=== PATIENT | female | born 1960 | race Caucasian/White ===

== ENCOUNTER 2020-08-04 10:56 | Emergency (ER) | payer BC, SELFPAY ==
[2020-08-04 11:13] VITALS: BP 177/95; PULSE 95; RESP 24; TEMP 37; O2SAT 99; BMI 34.6
--- NOTE | 2020-08-04 11:14 | CT_ITS ---
WS: [id number] CT ABDOMEN PELVIS TECHNIQUE: Noncontrast CT of the abdomen and pelvis with coronal and sagittal reformatted images. CLINICAL INFORMATION: flank pain COMPARISON: None. DLP: 1037.[address] scans at [facility] use at least one of these dose optimization techniques: automat ed exposure control; mA and/or kV adjustment per patient size (includes targeted exams where dose is matched to clinical indication); or iterative reconstruction. FINDINGS: Normal noncontrast liver. Cholecystectomy clips. Noncontrast spleen is normal. Normal GE junction. Bibi ng bases are well aerated. Adrenal glands are normal. No hydronephrosis in either kidney. No obstruct ing renal or ureteral calculi. Normal caliber abdominal aorta. No abdominal or pelvic lymphadenopathy . Normal sigmoid colon. No evidence of high-grade small or large bowel obstruction. No free fluid in th e abdomen or pelvis. Mild thoracolumbar curve. Urine distended bladder. CT/CT kidney stone [id number] IMPRESSION: 1. No acute abdominal or pelvic findings. 2. No evidence of small or large bowel obstruction. 3. Cholecystectomy clips. 4. No obstructing renal or ureteral calculi. No hydronephrosis. Notified Nas Rankin DO at 08/04/2020 12:38 PM.
--- NOTE | 2020-08-04 11:14 | ECG_ITS ---
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 Measurements Intervals [place] Rate: 83 P: 22 DE: 134 QRS: -15 QRSD: 81 T: 40 QT: 342 QTc: 403 Interpretive Statements SINUS RHYTHM WITH SINUS ARRHYTHMIA MINIMAL VOLTAGE CRITERIA FOR LVH, CONSIDER NORMAL VARIANT [MEETS CRITERIA IN ONE OF: R(aVL), S(V1), R(V5), R(V5/V6)+S(V1)] No previous ECG available for comparison Electronically Signed On 08-04-2020 17:37:23 GUITAR TEACHER by Norris Gonzalez M.D. [id number]
--- NOTE | 2020-08-04 11:14 | XR_ITS ---
WS: [id number] Exam: XR chest 1V portable [id number] Date/Time of Exam: 08/04/2020 11:18 AM Reason For Exam: dyspnea/cough Findings: The lungs are clear and fully expanded. Costophrenic angles are sharp. No infiltrates. Bronchovascula r relief appears normal. Cardiac silhouette is unremarkable. Bony elements are intact. XR/XR chest 1V portable [id number] IMPRESSION: Unremarkable chest radiograph.
[2020-08-04 11:23] LABS: Glucose Point of Care 214 mg/dL (70-110)
--- NOTE | 2020-08-04 11:47 | ED_ITS ---
HPI - Female Genitourinary General: Chief complaint: Urogenital-Female Stated complaint: SHARP BACK/SIDE PAINS, BLOOD IN URINE Time Seen by Provider: 08/04/20 11:01 History of Present Illness: HPI Narrative: 59-year-old female presents emergency room complaining of left flank and back pain radiating down around to the left lower quadrant. Started at 2 AM today she is also noted some hematuria. Denies any fever sweats chills no cough shortness of breath. Pertinent past history: recurrent UTIs Quality of pain: cramping Consistency: constant Urinary symptoms: Dysuria and Flank Pain Exacerbating factors: none Relieving factors: none Associated symptoms: Deny abdominal pain, short of breath, fevers/chills, headache(s), nausea, rash, seizures, syncope, vaginal discharge or weakness Treatment prior to arrival: none Review of Systems Const: Denies: fever(s), chills, body aches, change in appetite, fatigue or malaise ENMT: Denies: throat pain, ear or mastoid pain, nasal discharge or nasal congestion Card: Denies: syncope Resp: Denies: dyspnea, productive cough or non-productive cough GI: Denies: abdominal pain or nausea : Denies: vaginal discharge Skin/Breast: Denies: rash or pruritus Neuro: Denies: headache(s) Physical Exam Const: COMMON NORMALS: no acute distress GENERAL APPEARANCE: cooperative and comfortable ORIENTATION/CONSCIOUSNESS: Yes awake, Yes oriented to person, Yes oriented to place and Yes oriented to time HENMT: COMMON NORMALS: normocephalic, atraumatic and hearing grossly normal bilaterally HEAD & SCALP: normocephalic and atraumatic Neck/C-Spine: COMMON NORMALS: no JVD Resp: COMMON NORMALS: normal respiratory effort, No retractions, No use of accessory muscles and clear to auscultation bilaterally AUSCULTATION: clear to auscultation bilaterally Cardio: COMMON NORMALS: no JVD, regular rate, regular rhythm and No murmurs present (Cardio) RATE: regular rate RHYTHM: regular rhythm GI: COMMON NORMALS: Soft to palpation and No hepatosplenomegaly present AUSCULTATION: Yes normoactive bowel sounds PALPATION: Yes Soft to palpation, Yes Tenderness to palpation present (GI) Details: LLQ, No Guarding due to palpation present (GI) and Yes No hepatosplenomegaly present Extremity: COMMON NORMALS: normal to inspection, capillary refill normal, no clubbing, cyanosis or edema, no calf tenderness and no pedal edema Neuro: SENSORIUM/ORIENTATION: Yes oriented to person, Yes oriented to place and Yes oriented to time Skin: COMMON NORMALS: no rashes or lesions noted GENERAL SKIN EXAM: no rashes or lesions noted Course Vital Signs: Vital signs: Vital Signs Temperature 98.6 F 08/04/20 11:13 Pulse Rate 81 08/04/20 14:45 Respiratory Rate 18 08/04/20 14:45 Blood Pressure 164/97 08/04/20 14:45 Pulse Oximetry 97 08/04/20 14:45 MDM - Female MDM Narrative: Medical decision making narrative: Does have a significant mild blood in her urine with some dysuria will treat her for cystitis cultures pending. I think her back pain is more related to musculoskeletal to reproduce with palpation and with movement. We will give her pain medications if has worsening or change symptoms return if urine culture is negative will need further evaluation. Lab Data: Labs: Lab Results 08/04/20 08/04/20 08/04/20 Range/Units 11:19 11:50 12:00 WBC 12.2 H (4.0-10.0) 10^3/ uL RBC 4.79 (4.1-5.3) 10^6/u L Hgb 14.5 (11.5-15.3) g/dL Hct 44.2 (37.0-47.0) % MCV 92.3 (81-99) fL MCH 30.3 (28.0-34.0) pg MCHC 32.8 (30.0-36.0) g/dL RDW 12.8 (12.1-15.1) % Plt Count 320 (130-400) 10^3/c mm MPV 9.8 (7.4-10.4) fL Neut % (Auto) 77.1 % Lymph % (Auto) 15.4 % Hand % (Auto) 6.7 % Eos % (Auto) 0.2 % Baso % (Auto) 0.3 % Neut # (Auto) 9.36 H (1.8-7.7) 10^3/u L Lymph # (Auto) 1.9 (0.8-4.8) 10^3/u L Hand # (Auto) 0.8 (0.2-0.9) 10^3/u L Eos # (Auto) 0.0 (0.0-0.8) 10^3/u L Baso # (Auto) 0.0 (0.0-0.1) 10^3/u L Nucleated RBC % (a uto) 0 % Nucleated RBCs # 0.0 /100WBC Sodium (136-145) mmol/L Potassium (3.5-5.1) mmol/L Chloride (98-107) mmol/L Carbon Dioxide (22-29) mmol/L Anion Gap (5-19) BUN (6-20) mg/dL Creatinine (0.5-0.9) mg/dL GFR Calculation (90-130) mL/min Glucose (65-115) mg/dL POC Glucose 214 H (70-110) mg/dL Calculated Osmolal ity (285-295) mOsm/k g Calcium (8.5-10.5) mg/dL Magnesium (1.7-2.3) mg/dL Total Bilirubin (0.15-1.2) mg/dL AST (0-32) U/L ALT (0-33) U/L Alkaline Phosphata se (35-105) IU/L Total Protein (6.6-8.7) g/dL Albumin (3.5-5.2) g/dL Globulin (1.3-4.6) g/dL Lipase (13-60) U/L Urine Color Straw (Yellow) Urine Appearance Sl hazy (CLEAR) Urine pH 6.5 (5-7) Ur Specific Gravit y 1.005 (1.005-1.030) Urine Protein Neg (Negative) Urine Glucose (UA) 1+ (Normal) Urine Ketones Negative (Negative) Urine Blood 3+ H (Negative) Urine Nitrate Negative (Negative) Urine Bilirubin Neg (Negative) Urine Urobilinogen Norm (Negative) mg/dL Ur Leukocyte Lindsey ase Negative (Negative) Urine RBC 50-80 H (0-2) /hpf Urine WBC None (0-5) /hpf Ur Squamous Epith Cells 0-4 H (0-5) /hpf Amorphous Sediment Not Reportable Urine Bacteria 2+ H (NONE) /hpf 08/04/20 Range/Units 12:00 WBC (4.0-10.0) 10^3/ uL RBC (4.1-5.3) 10^6/u L Hgb (11.5-15.3) g/dL Hct (37.0-47.0) % MCV (81-99) fL MCH (28.0-34.0) pg MCHC (30.0-36.0) g/dL RDW (12.1-15.1) % Plt Count (130-400) 10^3/c mm MPV (7.4-10.4) fL Neut % (Auto) % Lymph % (Auto) % Hand % (Auto) % Eos % (Auto) % Baso % (Auto) % Neut # (Auto) (1.8-7.7) 10^3/u L Lymph # (Auto) (0.8-4.8) 10^3/u L Hand # (Auto) (0.2-0.9) 10^3/u L Eos # (Auto) (0.0-0.8) 10^3/u L Baso # (Auto) (0.0-0.1) 10^3/u L Nucleated RBC % (a uto) % Nucleated RBCs # /100WBC Sodium 137 (136-145) mmol/L Potassium 5.0 (3.5-5.1) mmol/L Chloride 103 (98-107) mmol/L Carbon Dioxide 22 (22-29) mmol/L Anion Gap 17.0 (5-19) BUN 14 (6-20) mg/dL Creatinine 0.5 (0.5-0.9) mg/dL GFR Calculation 126.7 (90-130) mL/min Glucose 200 H (65-115) mg/dL POC Glucose (70-110) mg/dL Calculated Osmolal ity 290 (285-295) mOsm/k g Calcium 9.8 (8.5-10.5) mg/dL Magnesium 1.4 L (1.7-2.3) mg/dL Total Bilirubin 0.3 (0.15-1.2) mg/dL AST 28 (0-32) U/L ALT 36 H (0-33) U/L Alkaline Phosphata se 72 (35-105) IU/L Total Protein 7.9 (6.6-8.7) g/dL Albumin 4.4 (3.5-5.2) g/dL Globulin 3.5 (1.3-4.6) g/dL Lipase 31 (13-60) U/L Urine Color (Yellow) Urine Appearance (CLEAR) Urine pH (5-7) Ur Specific Gravit y (1.005-1.030) Urine Protein (Negative) Urine Glucose (UA) (Normal) Urine Ketones (Negative) Urine Blood (Negative) Urine Nitrate (Negative) Urine Bilirubin (Negative) Urine Urobilinogen (Negative) mg/dL Ur Leukocyte Lindsey ase (Negative) Urine RBC (0-2) /hpf Urine WBC (0-5) /hpf Ur Squamous Epith Cells (0-5) /hpf Amorphous Sediment Urine Bacteria (NONE) /hpf Imaging Data: CT Abd/Pel: Radiologist's impression: CT ABDOMEN PELVIS TECHNIQUE: Noncontrast CT of the abdomen and pelvis with coronal and sagittal reformatted images. CLINICAL INFORMATION: flank pain COMPARISON: None. DLP: 1037.[address] scans at [facility] use at least one of these dose optimization techniques: automated exposure control; mA and/or kV adjustment per patient size (includes targeted exams where dose is matched to clinical indication); or iterative reconstruction. FINDINGS: Normal noncontrast liver. Cholecystectomy clips. Noncontrast spleen is normal. Normal GE junction. Lung bases are well aerated. Adrenal glands are normal. No hydronephrosis in either kidney. No obstructing renal or ureteral calculi. Normal caliber abdominal aorta. No abdominal or pelvic lymphadenopathy. Normal sigmoid colon. No evidence of high-grade small or large bowel obstruction. No free fluid in the abdomen or pelvis. Mild thoracolumbar curve. Urine distended bladder. CT/CT kidney stone [id number] IMPRESSION: 1. No acute abdominal or pelvic findings. 2. No evidence of small or large bowel obstruction. 3. Cholecystectomy clips. 4. No obstructing renal or ureteral calculi. No hydronephrosis. Notified Nas Rankin DO at 08/04/2020 12:38 PM. Dictated By:Skyler Wren MD Discharge Plan Discharge Patient Disposition: Home Clinical Impression: Cystitis, Low back pain Condition: Stable Prescriptions: New Macrobid 100 mg capsule 100 mg PO BID 7 Days Qty: 14 RF: 0 hydrocodone-acetaminophen 5-325 mg tablet 1 tab PO Q6H PRN (Reason: pain) Qty: 10 RF: 0 tizanidine 4 mg capsule 4 mg PO Q6H PRN (Reason: muscle spasticity) Qty: 30 RF: 0 No Action Aspir-81 81 mg Tablet,Delayed Release (Dr/Ec) 81 mg PO BEDTIME PRN (Reason: UNKNOWN) RF: 0 metformin 1,000 mg tablet 1,000 mg PO BID@08,20 RF: 0 pravastatin 20 mg tablet 20 mg PO QPM RF: 0 oxybutynin chloride 5 mg tablet 5 mg PO DAILY@08 RF: 0 potassium gluconate 595 mg (99 mg) Tablet 595 mg PO DAILY RF: 0 calcium 1 tab PO DAILY RF: 0 multivitamin Tablet 1 tab PO DAILY RF: 0 Discharge Orders: Discharge ED (Routine); Ordered 08/04/20 Ordered By: Nas Rankin Discharge Diet: Usual diet Discharge Activity: Increase activity as tolerated Patient Instructions: Opioid Safety Coding Level of Care Code ED Machinist First Class for Castro Chavez
[2020-08-04] MEDS: sodium chloride 0.9% 1,000 ML 999 ML IV (12:03)
[2020-08-04] MEDS: ondansetron 2 mg/ML SDV 2 mL 4 MG IVP (12:08)
[2020-08-04] MEDS: morphine 4 mg/mL SDV 1 mL IVP (12:08)
[2020-08-04 12:11] LABS: Basophils % 0.3 %; Eosinophils % 0.2 %; Hematocrit 44.2 % (37.0-47.0); Hemoglobin 14.5 g/dL (11.5-15.3); Lymphocytes # 1.9 10^3/uL (0.8-4.8); Lymphocytes % 15.4 %; Mean Corpuscular HGB Conc 32.8 g/dL (30.0-36.0); Mean Corpuscular Hemoglobin 30.3 pg (28.0-34.0); Mean Corpuscular Volume 92.3 fL (81-99); Mean Platelet Volume 9.8 fL (7.4-10.4); Monocytes # 0.8 10^3/uL (0.2-0.9); Monocytes % 6.7 %; Neutrophils # 9.36 10^3/uL (1.8-7.7); Neutrophils % 77.1 %; Nucleated Red Blood Cells % 0 %; Platelet Count 320 10^3/cmm (130-400); Red Blood Count 4.79 10^6/uL (4.1-5.3); Red Cell Distribution Width 12.8 % (12.1-15.1); White Blood Count 12.2 10^3/uL (4.0-10.0)
[2020-08-04 12:12] VITALS: PULSE 99; RESP 20; O2SAT 97
--- NOTE | 2020-08-04 12:18 | PC.PHAR ---
PT STATES SHE WOULD TAKE ASPIRIN 81MG EVERY NIGHT BUT DOESNT ALWAYS REMEMBER SO SHE STATES SHE MAY TAKE 3-4 TIMES A WEEK-PT STATES HER PRAVASTATIN WAS INCREASED TO 20MG PO QPM EXT MED HISTORY SHOWS LAST FILLED ON 04/18/20 FOR 10MG PO QPM
[2020-08-04 12:31] LABS: Add Urine Microscopic? YES; Bilirubin Urine Neg (Negative); Blood Urine 3+ (Negative); Glucose Urine UA 1+ (Normal); Ketones Urine Negative (Negative); Leukocyte Esterase Urine Negative (Negative); Nitrate Urine Negative (Negative); Protein Urine Neg (Negative); Specific Gravity, Urine 1.005 (1.005-1.030); Urine Appearance SL Hazy (CLEAR); Urine Color Straw (Yellow); Urobilinogen Urine Norm (Negative); pH Urine 6.5 (5-7)
[2020-08-04 12:38] LABS: RBC Urine 50-80 /hpf (0-2)
[2020-08-04 12:39] LABS: Albumin Level 4.4 g/dL (3.5-5.2); Alkaline Phosphatase 72 IU/L (35-105); Blood Urea Nitrogen 14 mg/dL (6-20); Calcium 9.8 mg/dL (8.5-10.5); Carbon Dioxide 22 mmol/L (22-29); Chloride 103 mmol/L (98-107); Creatinine Clr Calc Pharmacy 140.5133; Globulin 3.5 g/dL (1.3-4.6); Glomerular Filtration Rate 126.7 mL/min (90-130); Glucose 200 mg/dL (65-115); Lipase 31 U/L (13-60); Magnesium 1.4 mg/dL (1.7-2.3); Osmolality Calculated 290 mOsm/kg (285-295); Sodium 137 mmol/L (136-145); Total Bilirubin 0.3 mg/dL (0.15-1.2); Total Protein 7.9 g/dL (6.6-8.7)
[2020-08-04 12:39] LABS: Bacteria Urine 2+ /hpf; Squamous Epithelial Cell Urine 0-4 /hpf (0-5)
[2020-08-04 12:40] LABS: Add Urine Culture? Yes
[2020-08-04 12:43] LABS: Alanine Aminotransferase 36 U/L (0-33); Aspartate Amino Transferase 28 U/L (0-32)
[2020-08-04] MEDS: cefTRIAXone 1,000 MG in lidocaine 1% 2.1 ML 1 MG IM (14:18)
[2020-08-04 14:34] VITALS: RESP 16
[2020-08-04] MEDS: morphine 4 mg/mL SDV 1 mL 2 MG IVP (14:34)
[2020-08-04 14:45] VITALS: BP 164/97; PULSE 81; RESP 18; O2SAT 97
== END 2020-08-04 14:50 | disposition home or self-care (01) ==
PROVIDERS: Emergency Provider Family Medicine
DX: N30.90 Cystitis, unspecified without hematuria (principal); M54.5 Low back pain; Z79.82 Long term (current) use of aspirin; Z79.84 Long term (current) use of oral hypoglycemic drugs
CPT/HCPCS: 36415; 36416; 71045; 74176; 80053; 81001; 82962; 83690; 83735; 85025; 87040; 87077; 87086; 87186; 93005; 96361; 96372; 96374; 96375; 96376; 99284; J0696; J2270; J2405; J7030

== ENCOUNTER 2020-09-19 19:38 | Emergency (ER) | payer BC, SELFPAY ==
[2020-09-19 19:50] VITALS: BP 149/97; PULSE 92; RESP 20; TEMP 36.7; O2SAT 100; BMI 33.3
--- NOTE | 2020-09-19 21:11 | W.ED.WOUNDLC ---
HPI - Wound/Laceration General: Chief Complaint: Wound/Laceration Stated Complaint: laceration to R thumb Time Seen by Provider: 09/19/20 20:57 Source: patient Mode of arrival: ambulatory Limitations: no limitations History of Present Illness: HPI narrative: 60-year-old female comes in today for injury to the right dorsal hand at the base of the thumb. Patient has normal range of motion of the digit. Patient does not recall her last tetanus. Patient appears well. Patient appears no acute distress. Injury occurred this afternoon while opening a can. Review of Systems General: Reports: 10 or more systems reviewed and unremarkable except in HPI and below Skin/Breast: Reports: other (Skin laceration right hand) Physical Exam Const: COMMON NORMALS: no acute distress and patient oriented x3 GENERAL APPEARANCE: cooperative HENMT: COMMON NORMALS: normocephalic and Normal external nose present HEAD & SCALP: normal to inspection and normocephalic NOSE: Normal external nose present Eye: GENERAL EYE: appearance normal, both eyes and all related structures Neck/C-Spine: COMMON NORMALS: full ROM Chest: COMMONS NORMALS: normal inspection of the chest Resp: COMMON NORMALS: normal respiratory effort EFFORT & INSPECTION: Yes able to speak in complete sentences Cardio: COMMON NORMALS: regular rate and regular rhythm RATE: regular rate RHYTHM: regular rhythm GI: COMMON NORMALS: non-tender Back/Pelvis: COMMON NORMALS: thoracic and lumbar spine normal to inspection Extremity: COMMON NORMALS: normal to inspection Neuro: COMMON NORMALS: patient oriented x3 and moves all extremities Psych: COMMON NORMALS: mental status grossly normal and cooperative Skin: NARRATIVE SKIN EXAM: Laceration noted to the base of the right thumb on the dorsal aspect. Patient has good range of motion of the thumb without difficulty. Patient does have prompt capillary refill. Procedures Laceration Laceration 1: Site: hand Side (If applicable): right Size (cm): 3 Description: linear Depth: simple, single layer Local Anesthetic: lidocaine 1% and with epi Amount of anesthesia used (mL): 4 Pre-repair: wound explored and deep structures intact Skin layer closed with: nylon Size (cm): 4-0 Number of sutures: 3 Technique: horizontal mattress Course Vital Signs: Vital signs: Vital Signs Temperature 98.0 F 09/19/20 19:50 Pulse Rate 92 09/19/20 19:50 Respiratory Rate 20 H 09/19/20 19:50 Blood Pressure 149/97 09/19/20 19:50 Pulse Oximetry 100 09/19/20 19:50 MDM - Wound/Laceration MDM Narrative: Medical decision making narrative: Patient comes in for laceration to the right dorsal hand/thumb area. On exam patient has normal range of motion of the thumb. Cap refill is normal. Normal sensation is noted. Differential diagnosis includes laceration, tendon injury, foreign body. No foreign body or tendon injury was noted on the exam. Wound was closed with 3 mattress sutures. Patient tolerated well. Reviewed recommendations for post procedure care with patient and family. They reported understanding. Discharge Plan Discharge Patient Disposition: Home Clinical Impression: Laceration Condition: Stable Prescriptions: No Action Aspir-81 81 mg Tablet,Delayed Release (Dr/Ec) 81 mg PO BEDTIME PRN (Reason: UNKNOWN) RF: 0 metformin 1,000 mg tablet 1,000 mg PO BID@08,20 RF: 0 pravastatin 20 mg tablet 20 mg PO QPM RF: 0 oxybutynin chloride 5 mg tablet 5 mg PO DAILY@08 RF: 0 potassium gluconate 595 mg (99 mg) Tablet 595 mg PO DAILY RF: 0 calcium 1 tab PO DAILY RF: 0 multivitamin Tablet 1 tab PO DAILY RF: 0 hydrocodone-acetaminophen 5-325 mg tablet 1 tab PO Q6H PRN (Reason: pain) Qty: 10 RF: 0 tizanidine 4 mg capsule 4 mg PO Q6H PRN (Reason: muscle spasticity) Qty: 30 RF: 0 Discharge Orders: Discharge ED (Routine); Ordered 09/19/20 Ordered By: Shad Aguirre Discharge Diet: Usual diet Discharge Activity: Limit activity as instructed Patient Instructions: Opioid Safety, Stitches and [place] Care Activity Restrictions/Additional Instructions: Keep wound clean and dry. Is important to keep the wound really dry for the next 2 days. Avoid submerging underwater or long periods of dampness to the wound. After 2 days you can wash the wound gently with some soap and water then dry it thoroughly. Sutures need to come out in 7 to 10 days. Follow-up with primary care in 1 week. Return to the emergency department for new concerns. Coding Level of Care Code ED Mixing And Molding Machine Operator for Castro Fwgloria Exam Comprehensive
[2020-09-19] MEDS: tetanus-dipt-pertussis 0.5 mL SDV IM (21:19)
== END 2020-09-19 22:14 | disposition home or self-care (01) ==
PROVIDERS: Emergency Provider Nurse Practitioner Family
DX: S61.011A Laceration without foreign body of right thumb without damage to nail, initial encounter (principal); Z79.82 Long term (current) use of aspirin; Z79.84 Long term (current) use of oral hypoglycemic drugs; X58.XXXA Exposure to other specified factors, initial encounter; Z23 Encounter for immunization
CPT/HCPCS: 12002; 90471; 90715; 99282

== ENCOUNTER → 2021-01-24 11:06 | Outpatient (BNVA) | payer BC, SELFPAY | PROVIDERS: Visit Provider Nurse Practitioner | DX: N39.0 Urinary tract infection, site not specified (principal) | CPT/HCPCS: 81000 ==

== ENCOUNTER → 2021-02-20 17:19 | Outpatient (BNVA) | payer BC, SELFPAY | PROVIDERS: Visit Provider Nurse Practitioner | DX: N39.0 Urinary tract infection, site not specified (principal) | CPT/HCPCS: 81000; 87086 ==

== ENCOUNTER 2021-03-01 13:32 | Emergency (ER) | payer BC, SELFPAY ==
[2021-03-01 14:04] VITALS: BP 169/91; PULSE 99; RESP 16; TEMP 36.9; O2SAT 97; BMI 31.9
--- NOTE | 2021-03-01 14:47 | W.ED.GENADLT ---
HPI - General Adult General: Chief complaint: General Medical Stated complaint: PAINFUL URINATION Time Seen by Provider: 03/01/21 14:20 History of Present Illness: HPI narrative: Patient is a 60-year-old female comes to the ED with dysuria. Symptoms started last night. She is complaining of having pain whenever she urinates and also says she sees a little bit of blood in her urine. She also has some lower abdomen/bladder pain. Patient has a history of UTIs and says her last UTI was about a month ago and it was treated with nitrofurantoin. Associated symptoms: Deny chest pain, dyspnea, headache(s), nausea, rash, palpitations or vomiting Review of Systems Const: Denies: fever(s), chills or fatigue Eyes: Denies: change in vision or eye discomfort ENMT: Denies: throat pain, odynophagia, nasal discharge or nasal congestion Card: Denies: chest pain, palpitations, edema, swelling of feet/ankles, dyspnea on exertion or orthopnea Resp: Denies: dyspnea, productive cough or non-productive cough GI: Denies: abdominal pain, nausea, vomiting, diarrhea, constipation or hematochezia : Reports: dysuria and hematuria; Denies: flank pain Musc: Denies: neck pain, back pain or extremity swelling Skin/Breast: Denies: rash or new lesions Neuro: Denies: headache(s), numbness in extremities or weakness in extremities Physical Exam Const: COMMON NORMALS: no acute distress, patient oriented x3, healthy appearing and alert GENERAL APPEARANCE: cooperative and comfortable HENMT: COMMON NORMALS: normocephalic HEAD & SCALP: normocephalic MOUTH: Normal oral and palatal mucosa present THROAT: posterior oropharynx normal and uvula midline Neck/C-Spine: COMMON NORMALS: supple GENERAL: Yes normal visual inspection Resp: COMMON NORMALS: normal respiratory effort, No retractions, No use of accessory muscles and clear to auscultation bilaterally AUSCULTATION: clear to auscultation bilaterally Cardio: COMMON NORMALS: regular rate, regular rhythm, S1 normal heart sound present, S2 normal heart sound present, No gallops present (Cardio), No clicks present (Cardio), No murmurs present (Cardio) and Peripheral pulses 2+ throughout RATE: regular rate RHYTHM: regular rhythm HEART SOUNDS: S1 normal heart sound present and S2 normal heart sound present PERIPHERAL PULSES: Peripheral pulses 2+ throughout GI: COMMON NORMALS: Normal to inspection, nondistended, normoactive bowel sounds present, Soft to palpation, non-tender and no masses PALPATION: Yes Soft to palpation and Yes Bladder palpation abnormal : COMMON NORMALS: Yes no CVA tenderness BLADDER/KIDNEY EXAM: Yes no CVA tenderness and Yes Bladder palpation abnormal Bladder abnormal details: tender Back/Pelvis: COMMON NORMALS: no CVA tenderness Extremity: COMMON NORMALS: normal to inspection Neuro: COMMON NORMALS: patient oriented x3 and moves all extremities SENSORIUM/ORIENTATION: Yes alert Skin: GENERAL SKIN EXAM: dry skin Course Vital Signs: Vital signs: Vital Signs Temperature 98.5 F 03/01/21 14:04 Pulse Rate 94 03/01/21 15:07 Respiratory Rate 16 03/01/21 15:07 Blood Pressure 147/87 03/01/21 15:07 Pulse Oximetry 96 03/01/21 15:07 MDM - General Adult MDM Narrative: Medical decision making narrative: Patient is a 60-year-old female who comes to the ED with UTI symptoms. She has a history of UTIs. UA showed blood in her urine and some white blood cells and bacteria as well. Vital stable. Patient appears nontoxic and in no acute distress or pain and is sitting comfortably on exam chair when I enter the room. Mild bladder tenderness upon palpation. Patient was diagnosed with a UTI and discharged home on cefdinir. I placed order with case management for patient to be referred to a PCP to get established. Return to ED precautions given. Patient understood and agree with plan. Lab Data: Attestation: I reviewed the patient's lab results. Labs: Lab Results 03/01/21 15:05 Urine Color Yellow (Yellow) Urine Appearance Hazy A (CLEAR) Urine pH 5 (5-7) Ur Specific Gravit y 1.010 (1.005-1.030) Urine Protein Neg (Negative) Urine Glucose (UA) Norm (Normal) Urine Ketones Negative (Negative) Urine Blood 3+ H (Negative) Urine Nitrate Negative (Negative) Urine Bilirubin Neg (Negative) Urine Urobilinogen Norm mg/dL mg/dL (Negative) Ur Leukocyte Lindsey ase Trace H (Negative) Urine RBC >100 /hpf H /hpf (0-2) Urine WBC 0-4 /hpf H /hpf (0-5) Ur Squamous Epith Cells 0-4 /hpf H /hpf (0-5) Ur Transition Epit h Cell 0-4 /hpf /hpf Amorphous Sediment Not Reportable Urine Bacteria Trace /hpf /hpf (NONE) Urine Mucus Trace /hpf /hpf Discharge Plan Discharge Patient Disposition: Home Clinical Impression: UTI (urinary tract infection) Qualifiers: Urinary tract infection type: acute cystitis Hematuria presence: with hematuria Qualified Code(s): N30.01 - Acute cystitis with hematuria Condition: Stable Prescriptions: New cefdinir 300 mg capsule 300 mg PO BID 10 Days Qty: 20 RF: 0 No Action Aspir-81 81 mg Tablet,Delayed Release (Dr/Ec) 81 mg PO BEDTIME PRN (Reason: UNKNOWN) RF: 0 metformin 1,000 mg tablet 1,000 mg PO BID@08,20 RF: 0 pravastatin 20 mg tablet 20 mg PO QPM RF: 0 oxybutynin chloride 5 mg tablet 5 mg PO DAILY@08 RF: 0 potassium gluconate 595 mg (99 mg) Tablet 595 mg PO DAILY RF: 0 calcium 1 tab PO DAILY RF: 0 multivitamin Tablet 1 tab PO DAILY RF: 0 tizanidine 4 mg capsule 4 mg PO Q6H PRN (Reason: muscle spasticity) Qty: 30 RF: 0 Discharge Orders: Discharge ED (Routine); Ordered 03/01/21 Ordered By: Rell Harding Discharge Diet: Regular Discharge Activity: Increase activity as tolerated Patient Instructions: Urinary Tract Infection in Women (ED) Activity Restrictions/Additional Instructions: Follow-up with medical provider as directed. Case management will be contacting you in the next several days to set up an appointment with a primary care provider. Take medications as prescribed. Return to the ER or your medical provider if condition worsens. Please read and understand discharge instructions. Thank you for choosing [facility] for your healthcare needs today. Please realize this is an emergency room and that we are providing you with a medical screening exam and this may not be complete and all inclusive of all the testing and or work up that you may need to determine your ailment or severity of your illness. It is very important that you follow up as instructed or that you return to the Emergency Department should you have concerns or if your condition changes or worsens in any way. Coding Level of Care Code ED Field Adjuster for Castro Chavez Exam Comprehensive
[2021-03-01 15:07] VITALS: BP 147/87; PULSE 94; RESP 16; O2SAT 96
[2021-03-01 15:51] LABS: Add Urine Microscopic? YES; Bilirubin Urine Neg (Negative); Blood Urine 3+ (Negative); Glucose Urine UA Norm (Normal); Ketones Urine Negative (Negative); Leukocyte Esterase Urine Trace (Negative); Nitrate Urine Negative (Negative); Protein Urine Neg (Negative); Urine Appearance Hazy (CLEAR); Urine Color Yellow (Yellow); Urobilinogen Urine Norm (Negative); pH Urine 5 (5-7)
[2021-03-01 15:53] LABS: RBC Urine >100 /hpf (0-2)
[2021-03-01 15:54] LABS: Add Urine Culture? Yes; Bacteria Urine TRACE /hpf; Mucus Urine TRACE /hpf; Squamous Epithelial Cell Urine 0-4 /hpf (0-5); Transitional Epi Cells Urine 0-4 /hpf; WBC Urine 0-4 /hpf (0-5)
[2021-03-01] MEDS: HYDROcodone-acetaminophen 5-325 mg Tablet 1 TAB PO (16:25)
[2021-03-01] MEDS: cefdinir 300 MG CAPSULE PO (16:26)
--- NOTE | 2021-03-02 10:12 | DCPLANNER ---
Addendum entered by Jaclyn Lnin 07/01/21 16:27: Patient had a follow up appointment scheduled with [facility] to establish with a primary care physician - patient did attend appointment. Addendum entered by Jaclyn Linn 03/03/21 10:43: Patient returned rn field case manager phone call, stated that she did want help in getting established with a primary care physician in [facility]. resource efficiency manager called [facility] clinic, spoke with Nancy, gave clinic patients appointment information. A follow up appointment was scheduled for Monday, March 09, 2021 at 9:30 with Robel. resource efficiency manager called patient and gave patient the appointment information. Original Note: resource efficiency manager had message to speak with patient about getting established with a primary care physician. resource efficiency manager called phone number [phone], unable to speak with patient at this time, a voicemail was left for patient to return rn field case manager phone call.
== END 2021-03-01 17:07 | disposition home or self-care (01) ==
PROVIDERS: Emergency Provider Physician Assistant
DX: N30.01 Acute cystitis with hematuria (principal); Z79.82 Long term (current) use of aspirin; Z79.84 Long term (current) use of oral hypoglycemic drugs
CPT/HCPCS: 81001; 87086; 99282

== ENCOUNTER → 2021-03-09 09:39 | Outpatient (BNVA) | payer BC, SELFPAY | PROVIDERS: Visit Provider Registered Nurse | DX: N39.0 Urinary tract infection, site not specified (principal); I10 Essential (primary) hypertension; E11.9 Type 2 diabetes mellitus without complications | CPT/HCPCS: 81000 ==

== ENCOUNTER → 2021-08-02 10:08 | Outpatient (BNVA) | payer BC, SELFPAY | PROVIDERS: Visit Provider Registered Nurse Neonatal Intensive Care | DX: N39.0 Urinary tract infection, site not specified (principal) | CPT/HCPCS: 81000 ==

== ENCOUNTER → 2021-08-14 11:07 | Outpatient (BNVA) | payer BC, SELFPAY | PROVIDERS: Visit Provider Nurse Practitioner Family | DX: N39.0 Urinary tract infection, site not specified (principal) | CPT/HCPCS: 81000 ==

== ENCOUNTER → 2021-11-12 15:39 | Outpatient (BNVA) | payer BC, SELFPAY | PROVIDERS: Visit Provider Family Medicine Adult Medicine | DX: N39.0 Urinary tract infection, site not specified (principal); N39.3 Stress incontinence (female) (male) | CPT/HCPCS: 81000 ==

== ENCOUNTER → 2022-09-15 11:58 | Outpatient (BNVA) | payer SELFPAY | PROVIDERS: Visit Provider Emergency Medicine | DX: R39.9 Unspecified symptoms and signs involving the genitourinary system (principal); N39.0 Urinary tract infection, site not specified; R31.9 Hematuria, unspecified | CPT/HCPCS: 81000; 87077; 87086; 87184 ==

== ENCOUNTER → 2022-09-20 12:26 | Outpatient (BNVA) | payer SELFPAY | PROVIDERS: Visit Provider Nurse Practitioner Family | DX: R39.9 Unspecified symptoms and signs involving the genitourinary system (principal); N39.0 Urinary tract infection, site not specified; N30.01 Acute cystitis with hematuria | CPT/HCPCS: 81000 ==

== ENCOUNTER → 2022-12-08 08:43 | Outpatient (BNVA) | payer SELFPAY | PROVIDERS: PCP Family Medicine Adult Medicine; Visit Provider Family Medicine Adult Medicine | DX: E11.9 Type 2 diabetes mellitus without complications (principal); R29.898 Other symptoms and signs involving the musculoskeletal system; R29.6 Repeated falls; I10 Essential (primary) hypertension; M79.622 Pain in left upper arm; N39.3 Stress incontinence (female) (male) | CPT/HCPCS: 80053; 82252; 83036; 84443; 85025; 85651; 86140; 86160; 86162; 86235; 86255; 86376; 86431 ==

== ENCOUNTER 2022-12-29 10:17 | Outpatient (CLI) | payer OTHER, SELFPAY ==
--- NOTE | 2022-12-29 11:00 | MR_ITS ---
WS: [id number] MRI LUMBAR SPINE WITH CONTRAST TECHNIQUE: Sagittal T1, T2 and STIR imaging. Axial T1 and T2 imaging. Post gadolinium imaging was obt ained. CLINICAL INFORMATION: leg weakness COMPARISON: None. FINDINGS: Mild lumbar curve. No acute compression. Slight retrolisthesis L2 on L3. L1-L2: Mild disc bulging with slight effacement of the ventral thecal sac. Mild facet arthropathy. L2-L3: Slight retrolisthesis. Mild annular bulging with narrowing of the subarticular recess bilatera lly. Mild facet arthropathy. Mild LEFT greater than RIGHT foraminal narrowing. Mild facet arthropathy . L3-L4: No significant disc bulging. Mild LEFT and no significant RIGHT foraminal narrowing. Mild face t arthropathy. L4-L5: LEFT eccentric disc osteophyte complex. Mild LEFT and no significant RIGHT foraminal narrowing . Moderate facet arthropathy. L5-S1: Slight anterolisthesis L5 on S1. Moderate facet arthropathy. Spinal canal and foramen are nava nt. Visualized pelvic bony structures: Normal. Paravertebral soft tissues: Normal. Small LEFT adrenal nodule likely adenoma measuring 17 mm. MR/MR lumbar spine wo/w con [id number] IMPRESSION: 1. Mild lumbar curve. No acute compression. No high-grade central canal stenos is. 2. Slight retrolisthesis L1 on L2 and L2 on L3 with slight effacement of the v entral thecal sac and subarticular recess. 3. Mild LEFT greater than RIGHT L2-L3 foraminal narrowing. 4. Mild LEFT L3-L4 foraminal narrowing. 5. Mild LEFT L4-L5 foraminal narrowing. 6. Moderate facet arthropathy L4-L5 and L5-S1.
[2022-12-29] MEDS: gadobenate dimeglumine 20 mL vial IV (11:13)
== END 2022-12-29 10:18 | disposition home or self-care (01) ==
PROVIDERS: PCP Family Medicine Adult Medicine; Visit Provider Family Medicine Adult Medicine
DX: M47.817 Spondylosis without myelopathy or radiculopathy, lumbosacral region (principal); M48.061 Spinal stenosis, lumbar region without neurogenic claudication; E11.9 Type 2 diabetes mellitus without complications; R29.898 Other symptoms and signs involving the musculoskeletal system; R29.6 Repeated falls
CPT/HCPCS: 72158; 80053; 82252; 83036; 84443; 85025; 85651; 86140; 86160; 86162; 86235; 86255; 86376; 86431; A9577

== ENCOUNTER → 2023-01-19 09:18 | Outpatient (BNVA) | payer OTHER, SELFPAY | PROVIDERS: PCP Family Medicine Adult Medicine; Visit Provider Physician Assistant | DX: M75.42 Impingement syndrome of left shoulder (principal) | CPT/HCPCS: 73030 ==

== ENCOUNTER 2023-02-02 10:03 | Outpatient (RCR) | payer OTHER, SELFPAY | END 2023-02-09 23:59 | disposition home or self-care (01) | LOC: SPT 10:03 | PROVIDERS: PCP Family Medicine Adult Medicine; Visit Provider Physician Assistant | DX: M75.42 Impingement syndrome of left shoulder (principal) | CPT/HCPCS: 97110; 97162 ==

== ENCOUNTER 2023-02-10 06:00 | Outpatient (RCR) | payer OTHER, SELFPAY | END 2023-03-02 23:59 | disposition home or self-care (01) | LOC: SPT 06:00 | PROVIDERS: PCP Family Medicine Adult Medicine; Visit Provider Physician Assistant | DX: M75.42 Impingement syndrome of left shoulder (principal) | CPT/HCPCS: 97110 ==

== ENCOUNTER 2023-03-30 09:31 | Outpatient (CLI) | payer OTHER, SELFPAY ==
--- NOTE | 2023-03-30 10:00 | MR_ITS ---
WS: [id number] MRI LEFT SHOULDER HISTORY: left shoulder pain COMPARISON: 01/19/2023 TECHNIQUE: Multiplanar sequences of the shoulder joint are submitted. Moderate AC joint arthritis encroaching upon the supraspinatus muscle and tendon. Moderate subacromia l impingement. No os acromion. Partial subluxation of the biceps tendon. Biceps tendon is not identif ied in the bicipital groove. Mildly high riding humeral head nearly contacting the acromion. Subchondral cystic changes with loss of cartilage involving the humeral head and also the glenoid. Mild atrophy of the supraspinatus muscle. There is increased T2 signal involving the anterior most jackson praspinatus tendon near the overlapping with the rotator cuff interval. No additional rotator cuff te ar. There is no tendon retraction. Fraying of the labrum. No tear identified. IMPRESSION: 1. Moderate AC joint arthritis encroaching upon the supraspinatus muscle and tendon. 2. Subluxation biceps tendon. Biceps tendon is no longer present in the bicipital groove. 3. Insertion site tear of the distal anteriormost supraspinatus tendon overlapping with the rotator c uff interval. 4. Moderate subacromial impingement.
--- NOTE | 2023-03-30 13:45 | MR_ITS ---
WS: [id number] MRI CERVICAL SPINE NONCONTRAST HISTORY: NECK PAIN COMPARISON: None available. Technique: Multiplanar, multisequence noncontrast imaging of the cervical spine. C4 retrolisthesis by 3 mm. No marrow edema or acute fracture. Signal within the cervical cord is normal. Visualized posterior fossa is unremarkable. Craniocervical junction, C1 and C2 relationship, odontoid process and soft tissues are normal. C2-C3: Normal. C3-C4: Mild disc bulging with a central disc protrusion. Mild LEFT foraminal stenosis and facet arthr itis. C4-C5: Annular disc bulging and osteophytic ridging. Disc and osteophyte encroachment upon the ventra l thecal sac with effacement of CSF. Mild central with moderate bilateral foraminal stenosis. Mild bi lateral facet arthritis. C5-C6: Small foraminal osteophytes. Mild facet arthritis. Very mild bilateral foraminal stenosis. C6-C7: Central disc protrusion extends just to the RIGHT of midline. No contact on the ventral cord. Mild bilateral facet arthritis and foraminal stenosis C7-T1: Normal. T1-2: Shallow central disc protrusion does not appear to contact the cord on the sagittal sequence. Paraspinal soft tissue are normal. IMPRESSION: 1. No high-grade central stenosis. 2. C4-5: Mild central with moderate bilateral foraminal stenosis and facet arthritis. 3. C3-4: Mild LEFT foraminal stenosis. 4. C5-6 and C6-7: Mild bilateral foraminal stenosis.
== END 2023-03-30 09:32 | disposition home or self-care (01) ==
LOC: RAD 09:31
PROVIDERS: PCP Family Medicine Adult Medicine; Visit Provider Physician Assistant
DX: M75.42 Impingement syndrome of left shoulder (principal); M48.02 Spinal stenosis, cervical region; M47.22 Other spondylosis with radiculopathy, cervical region; M19.012 Primary osteoarthritis, left shoulder
CPT/HCPCS: 72141; 73221

== ENCOUNTER → 2023-04-26 15:06 | Outpatient (BNVA) | payer OTHER, SELFPAY | PROVIDERS: PCP Family Medicine Adult Medicine; Visit Provider Specialist | DX: M75.42 Impingement syndrome of left shoulder; M75.82 Other shoulder lesions, left shoulder; M75.102 Unspecified rotator cuff tear or rupture of left shoulder, not specified as traumatic; M19.012 Primary osteoarthritis, left shoulder | CPT/HCPCS: 73030 ==

== ENCOUNTER → 2023-07-18 08:36 | Outpatient (BNVA) | payer OTHER, SELFPAY | PROVIDERS: PCP Family Medicine Adult Medicine; Visit Provider Orthopaedic Surgery | DX: M54.50 Low back pain, unspecified (principal); G89.29 Other chronic pain | CPT/HCPCS: 72110 ==

== ENCOUNTER → 2023-08-28 10:02 | Outpatient (BNVA) | payer OTHER, SELFPAY | PROVIDERS: PCP Family Medicine Adult Medicine; Visit Provider Specialist | DX: M75.42 Impingement syndrome of left shoulder; M75.82 Other shoulder lesions, left shoulder; M75.102 Unspecified rotator cuff tear or rupture of left shoulder, not specified as traumatic; M12.812 Other specific arthropathies, not elsewhere classified, left shoulder | CPT/HCPCS: 73030 ==

== ENCOUNTER → 2023-09-07 13:38 | Outpatient (BNVA) | payer OTHER, SELFPAY | PROVIDERS: PCP Family Medicine Adult Medicine; Visit Provider Orthopaedic Surgery | DX: M54.50 Low back pain, unspecified (principal); G89.29 Other chronic pain | CPT/HCPCS: 72100 ==

== ENCOUNTER → 2023-11-21 11:26 | Outpatient (BNVA) | payer OTHER, SELFPAY | PROVIDERS: PCP Family Medicine Adult Medicine; Visit Provider Nurse Practitioner Family | DX: R30.0 Dysuria (principal) | CPT/HCPCS: 81000; 87086 ==

== ENCOUNTER → 2023-12-12 10:20 | Outpatient (BNVA) | payer OTHER, SELFPAY | PROVIDERS: PCP Family Medicine Adult Medicine; Visit Provider Family Medicine Adult Medicine | DX: R19.7 Diarrhea, unspecified (principal); I10 Essential (primary) hypertension; E11.9 Type 2 diabetes mellitus without complications; E11.69 Type 2 diabetes mellitus with other specified complication; E78.5 Hyperlipidemia, unspecified; R29.6 Repeated falls; K21.9 Gastro-esophageal reflux disease without esophagitis; Z79.899 Other long term (current) drug therapy | CPT/HCPCS: 80053; 83036; 84443; 85025 ==

== ENCOUNTER 2024-04-25 11:08 | Emergency (ER) | payer OTHER, SELFPAY ==
[2024-04-25 11:30] VITALS: BP 155/79; PULSE 88; RESP 16; TEMP 36.8; O2SAT 98; BMI 35.5
--- NOTE | 2024-04-25 13:44 | W.ED.EXTPRO ---
HPI - Extremity Problem General: Chief complaint: Extremity Injury, Upper Stated complaint: R arm pain Time Seen by Provider: 04/25/24 13:37 Source: patient Mode of arrival: ambulatory Limitations: no limitations History of Present Illness: Patient is a 63-year-old female who presents to the ED today with a complaint of pain to her upper arm that she sustained 4 days ago after she lifted a gallon of tea from the fridge. Patient states she felt something immediately pull on the arm. She has had some discomfort since. She has not noticed any bruising or swelling to the extremity. She states she has still been able to use the extremity but has limited lifting. MD Complaint: extremity pain Onset (ago): day(s) Pain Consistency: constant Location: right and upper extremity Radiation: none Relieving factors: nothing Exacerbating factors: other (lifiting) Associated symptoms: Reports no associated symptoms; Deny chest pain Related Data Home Medications Medication Instructions Recorded Confirmed d-mannose 500 mg capsule (AZO mg PO PRN 12/08/22 03/22/24 D-Mannose) multivitamin with iron 1 tab PO DAILY 12/08/22 03/22/24 vitamin B complex (B 1 tab PO DAILY 12/08/22 03/22/24 Complex-Vitamin B12 tablet) Previous Rx's Medication Instructions Recorded lisinopril 10 mg tablet 10 mg PO DAILY kidney 12/09/22 protection/diabetic #30 tabs pravastatin 20 mg tablet 20 mg PO QPM diabetic/cholesterol 12/09/22 #30 tabs calcium polycarbophil 625 mg 1,250 mg (2 x 625 mg) PO BID loose 12/12/23 tablet (FiberCon) stools #120 tabs pantoprazole 20 mg tablet,delayed 20 mg PO DAILY nausea #30 tabs 12/12/23 release (Protonix) metformin 1,000 mg tablet 1,000 mg PO BID diabetes #60 tabs 02/26/24 oxybutynin chloride 15 mg 15 mg PO DAILY urine incontinence 03/12/24 tablet,extended release 24 hr #90 tabs Allergies Allergy/AdvReac Type Severity Reaction Status Date / Time Penicillins Allergy Severe ALGY-Anaphy Verified 04/25/24 11:33 laxis Sulfa (Sulfonamide Allergy Unknown ALGY-Hives Verified 04/25/24 11:33 Antibiotics) Review of Systems Card: Denies: chest pain Resp: Denies: dyspnea Musc: Reports: extremity pain; Denies: neck pain, back pain, extremity swelling, joint pain, joint swelling, joint redness or joint warmth Neuro: Denies: numbness in extremities, weakness in extremities or sensory changes PFSH ED PFSH: Medical History Chronic GERD Diarrhea Dyslipidemia associated with type 2 diabetes mellitus Left upper arm pain Biceps muscle tear Falling due to legs giving way Weakness of both legs TMJ arthralgia Urinary tract infection Urinary, incontinence, stress female Surgical History History of cholecystectomy Family History Other Diabetes Hypertension Stroke Denies family history of CAD (coronary artery disease) Clotting disorder Dementia Hyperlipidemia Psychiatric illness Chronic kidney disease (CKD) Anesthesia complication Bleeding disorder Lung disease Cancer Social History Smoking and tobacco/nicotine status: never used tobacco/nicotine Alcohol intake: never Substance/Drug Use: never Adopted: No Caregiver/support person: No Lives independently: No Household members: spouse Marital status: service: No Current occupational status: unemployed Sexually active: Yes Do you think of yourself as: Straight/Heterosexual Current gender identity: Female Physical Exam Const: COMMON NORMALS: no acute distress, average body habitus, patient oriented x3, no limitations, healthy appearing, alert and well nourished Extremity: COMMON NORMALS: normal to inspection, full ROM, capillary refill normal, no joint enlargement and no clubbing, cyanosis or edema GENERAL: Yes normal exam except as noted RIGHT UPPER EXTREMITY: Yes upper arm Right upper arm: Yes neurovascular exam (normal) OTHER: mild tenderness to R upper arm without bicep deformity; negative Speeds/Yergason testing for bicep rupture/tear; no edema/ecchymosis noted; no bony deformity Neuro: COMMON NORMALS: patient oriented x3, moves all extremities, no focal motor deficits and no sensory deficits noted SENSORIUM/ORIENTATION: Yes alert Course Vital Signs: Vital signs: Vital Signs Temperature 98.3 F 04/25/24 11:30 Pulse Rate 88 04/25/24 11:30 Respiratory Rate 16 04/25/24 11:30 Blood Pressure 155/79 04/25/24 11:30 Pulse Oximetry 98 04/25/24 11:30 Oxygen Delivery Me thod Room Air 04/25/24 11:30 MDM - Extremity (Nontraumatic) Medical Decision Making Most likely sprain/strain/minor tear R upper extremity. Recommend conservative therapy and follow up with PCP in 1-2 weeks if symptoms to not improve. Requesting sling for comfort. Medical Records I reviewed the patient's medical records. No radiology studies performed this visit Discharge Plan Discharge Patient Disposition: Home Clinical Impression: Muscle strain of right upper arm Qualifiers: Encounter type: initial encounter Qualified Code(s): S46.911A - Strain of unspecified muscle, fascia and tendon at shoulder and upper arm level, right arm, initial encounter Condition: Stable Prescriptions: No Action FiberCon 625 mg tablet 1,250 mg PO BID Qty: 120 5RF pantoprazole [Protonix] 20 mg tablet,delayed release (DR/EC) 20 mg PO DAILY Qty: 30 5RF multivitamin with iron Tablet 1 tab PO DAILY AZO D-Mannose 500 mg capsule PO PRN vitamin B complex [B Complex-Vitamin B12] Tablet 1 tab PO DAILY lisinopril 10 mg tablet 10 mg PO DAILY Qty: 30 11RF pravastatin 20 mg tablet 20 mg PO QPM Qty: 30 11RF Rx Instructions: SEE PHARMACY COMMENT metformin 1,000 mg tablet 1,000 mg PO BID Qty: 60 11RF oxybutynin chloride 15 mg tablet extended release 24hr 15 mg PO DAILY Qty: 90 0RF Discharge Orders: Discharge ED (Routine); Ordered 04/25/24 Ordered By: Palmira Aguilar Referrals: Willian Dobson MD [Primary Care Provider] - Activity Restrictions/Additional Instructions: As we discussed, I would like you to begin taking an [id number] anti-inflammatory such as ibuprofen or naproxen. You may ice and elevate the area of discomfort. As we discussed, I would like you to follow-up with primary care in 1 to 2 weeks if symptoms do not seem to be improving. They can discuss with you additional treatment/evaluation if needed. Coding Level of Care Code ED Multimedia Production Assistant for [facility]
[2024-04-25 13:52] VITALS: BP 142/87; PULSE 76; O2SAT 94
[2024-04-25 13:53] VITALS: BP 142/87; PULSE 76; O2SAT 94
== END 2024-04-25 13:54 | disposition home or self-care (01) ==
PROVIDERS: Emergency Provider Physician Assistant; PCP Family Medicine Adult Medicine
DX: S46.911A Strain of unspecified muscle, fascia and tendon at shoulder and upper arm level, right arm, initial encounter (principal); X50.9XXA Other and unspecified overexertion or strenuous movements or postures, initial encounter
CPT/HCPCS: 99282

== ENCOUNTER → 2024-05-27 12:19 | Outpatient (BNVA) | payer OTHER, SELFPAY | PROVIDERS: PCP Family Medicine Adult Medicine; Visit Provider Nurse Practitioner | DX: M25.511 Pain in right shoulder (principal) | CPT/HCPCS: 73030 ==

== ENCOUNTER → 2024-06-28 12:22 | Outpatient (BNVA) | payer OTHER, SELFPAY | PROVIDERS: PCP Family Medicine; Visit Provider Family Medicine | DX: E11.69 Type 2 diabetes mellitus with other specified complication (principal); E78.5 Hyperlipidemia, unspecified; I10 Essential (primary) hypertension; E11.9 Type 2 diabetes mellitus without complications; K21.9 Gastro-esophageal reflux disease without esophagitis; R26.89 Other abnormalities of gait and mobility | CPT/HCPCS: 80053; 80061; 82043; 82607; 85025 ==

== ENCOUNTER → 2024-08-21 13:23 | Outpatient (BNVA) | payer OTHER, SELFPAY | PROVIDERS: PCP Family Medicine; Visit Provider Specialist | DX: M25.511 Pain in right shoulder (principal); M19.011 Primary osteoarthritis, right shoulder | CPT/HCPCS: 73030 ==

== ENCOUNTER → 2024-09-17 13:30 | Outpatient (BNVA) | payer OTHER, SELFPAY | PROVIDERS: PCP Family Medicine; Visit Provider Emergency Medicine | DX: R39.9 Unspecified symptoms and signs involving the genitourinary system (principal) | CPT/HCPCS: 81000; 87086 ==

== ENCOUNTER → 2024-10-03 12:13 | Outpatient (BNVA) | payer OTHER, SELFPAY | PROVIDERS: PCP Family Medicine | DX: N39.0 Urinary tract infection, site not specified (principal) | CPT/HCPCS: 81000; 87086 ==

== ENCOUNTER → 2025-02-11 15:14 | Outpatient (BNVA) | payer OTHER, SELFPAY | PROVIDERS: PCP Family Medicine; Visit Provider Emergency Medicine | DX: R30.0 Dysuria (principal) | CPT/HCPCS: 81000; 87086 ==